=== PATIENT | male | born 1955 | race Caucasian/White ===

== ENCOUNTER 2021-12-16 13:10 | Emergency (ER) | payer OTHER ==
[2021-12-16 13:56] LABS: Absolute Lymphocytes (CBC) 1.5 K/uL (0.7-4.9); Lymphocytes % 14.1 % (15.3-44.8); MPV 6.8 fL (7.6-11.3); RBC Red Blood Cell Count 4.36 M/uL (4.33-5.43)
[2021-12-16 13:59] LABS: Protime INR 0.91
[2021-12-16 14:23] LABS: ALT/SGPT 17 U/L (12-78); AST/SGOT 18 U/L (15-37); Albumin 3.2 g/dL (3.4-5.0); Alkaline Phosphatase 77 U/L (45-117); BUN Blood Urea Nitrogen 13 mg/dL (7-18); Bicarbonate 28 mmol/L (21-32); Bilirubin Direct 0.1 mg/dL (0-0.2); Bilirubin Total 0.3 mg/dL (0.2-1.0); Glucose Level 102 mg/dL (74-106); Magnesium 2.2 mg/dL (1.8-2.4); NT PRO-BNP 56 pg/mL (<125); Potassium 4.2 mmol/L (3.5-5.1); Protein, Total 7.3 g/dL (6.4-8.2); Sodium Level 138 mmol/L (136-145)
[2021-12-16] MEDS ORDERED: METHYLPREDNISOLONE 125 MG INJ ONE (14:27)
[2021-12-16] MEDS ORDERED: LEVALBUTEROL 1.25 MG/3 ML NEB ONE (14:27)
[2021-12-16 14:38] LABS: SARS-COV-2 RT PCR POSITIVE (NEGATIVE)
--- NOTE | 2021-12-16 14:39 | RAD REPORT ---
EXAM DESCRIPTION: Daniel Single View12/16/2021 2:31 pm CLINICAL HISTORY: sob COMPARISON: none FINDINGS: Large lucency right upper lobe. 4.6 centimeter opacity medial left upper lobe. Marked COPD. Heart is normal size IMPRESSION: 4.6 centimeter opacity medial left upper lobe probably mass, less likely pneumonia. Large lucency right upper lobe probably large bulla. CT chest recommended Marked COPD
--- NOTE | 2021-12-16 16:02 | RAD REPORT ---
EXAM DESCRIPTION: CT - Chest For Pe Angio - 12/16/2021 3:36 pm CLINICAL HISTORY: sob COMPARISON: December 16, 2020 chest x-ray TECHNIQUE: Dynamically enhanced axial 3 mm thick images of the chest were obtained during administra tion of <100> mL Isovue 370 IV contrast. Coronal and oblique reconstruction images were generated and reviewed. Exam utilizes a protocol for optimal evaluation of pulmonary arterial tree. Maximum intensity projections 3D imaging was utilized All CT scans are performed using dose optimization technique as appropriate and may include automated exposure control or mA/KV adjustment according to patient size. FINDINGS: A pulmonary embolus is not seen. A thoracic aortic aneurysm is not noted. A pleural effusion is not seen. A pericardial effusion is not seen. 14 centimeter purple lower right upper lobe. Additional large bulla bilaterally. 6 centimeter left upper lobe mass extends into the left hilum. The mass encases left pulmonary artery . AP window lymphadenopathy. 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 6 centimeter left upper lobe mass likely neoplasm Marked COPD
--- NOTE | 2021-12-16 16:46 | ER ---
Nurse's Notes [facility] Name: Vladimir Bronson Age: 66 yrs Sex: Male : 1955 Arrival Date: 12/16/2021 Time: 13:11 Bed 13 Private MD: Diagnosis: SARS-associated coronavirus as the cause of diseases classified elsewhere;Left Upper Lobe Lung Mass Presentation: 12/16 13:15 Chief complaint: Patient states: he feels like he can't breath. patient states his ap3 symptoms began yesterday. Coronavirus screen: shortness of breath, Client presents with at least one sign or symptom that may indicate coronavirus-19. Standard/surgical mask placed on the client. Provider contacted for isolation considerations. Ebola Screen: No symptoms or risks identified at this time. Initial Sepsis Screen: Does the patient meet any 2 criteria? HR > 90 bpm. Yes Does the patient have a suspected source of infection? No. Patient's initial sepsis screen is negative. Risk Assessment: Do you want to hurt yourself or someone else? Patient reports no desire to harm self or others. Onset of symptoms was December 15, 2021. 13:15 Method Of Arrival: Ambulatory ap3 13:15 Acuity: KENDRICK 3 ap3 Triage Assessment: 13:18 General: Appears in no apparent distress. comfortable, Behavior is calm, cooperative, ap3 appropriate for age. Pain: Denies pain. Neuro: Level of Consciousness is awake, alert, obeys commands, Oriented to person, place, time, situation, Appropriate for age Gait is steady, Speech is normal. Cardiovascular: Patient's skin is warm and dry. Respiratory: Reports shortness of breath on exertion cough that is non-productive, Airway is patent Respiratory effort is even, unlabored, Respiratory pattern is regular, symmetrical, Onset: The symptoms/episode began/occurred yesterday, the patient has mild shortness of breath. Historical: - Allergies: 13:16 No Known Allergies; ap3 - Home Meds: 13:16 gabapentin oral [Active]; Propranolol Oral [Active]; hydrocodone-acetaminophen Oral ap3 [Active]; Lorazepam Oral [Active]; - PMHx: 13:16 Chronic pain; ap3 - Immunization history:: Client reports having NOT received the Covid vaccine. Flu vaccine is not up to date. - Social history:: Smoking status: Patient reports the use of cigarette tobacco products, smokes one-half pack cigarettes per day. Screenin:19 Abuse screen: Denies threats or abuse. Nutritional screening: No deficits noted. ap3 Tuberculosis screening: No symptoms or risk factors identified. Fall Risk No fall in past 12 months (0 pts). Assessment: 14:20 General: Appears uncomfortable, Behavior is calm, cooperative. Neuro: Level of ww Consciousness is awake, alert, obeys commands, Oriented to person, place, time, situation, Speech is normal. Cardiovascular: Rhythm is regular. Respiratory: Reports cough that is Airway is patent Respiratory effort is even, unlabored, Respiratory pattern is regular, symmetrical. GI: No signs and/or symptoms were reported involving the gastrointestinal system. : No signs and/or symptoms were reported regarding the genitourinary system. Derm: Skin is intact. Musculoskeletal: No deficits noted. No signs and/or symptoms reported regarding the musculoskeletal system. 15:28 Reassessment: Patient appears in no apparent distress at this time. No changes from ww previously documented assessment. Patient and/or family updated on plan of care and expected duration. Pain level reassessed. transferred to CT scan. 16:43 Reassessment: Patient attempted to leave ER and was redirected to his room and lit a ww cigarette in the room. ER MD, ER director, ER Charge and security notified. ER Director and ER charge discussed with patient the safety. . 18:30 Respiratory: Breath sounds are coarse. oneill Vital Signs: 13:15 BP 120 / 84; Pulse 107; Resp 19; Temp 98.6; Pulse Ox 98% on R/A; Weight 58.97 kg; ap3 Height 5 ft. 9 in. (175.26 cm); 14:30 BP 124 / 79; Pulse 89; Resp 16; Pulse Ox 100% on R/A; ww 15:28 BP 121 / 80; Pulse 88; Resp 16; Pulse Ox 99% on R/A; ww 13:15 Body Mass Index 19.20 (58.97 kg, 175.26 cm) ap3 ED Course: 13:11 Patient arrived in ED. mr 13:16 Triage completed. ap3 13:20 Arm band placed on left wrist. ap3 13:24 Fermin Salinas PA is PHCP. cp 13:24 Chin Andrade MD is Attending Physician. cp 13:24 Patient has correct armband on for positive identification. Placed in gown. Bed in low ap3 position. Call light in reach. Side rails up X 1. Pulse ox on. NIBP on. Door closed. Noise minimized. 13:27 Kiki Amado, RN is Primary Nurse. ww 14:30 XRAY Chest (1 view) In Process Unspecified. EDMS 15:37 CT Chest For PE Angio In Process Unspecified. EDMS 16:43 Sanjeev Vargas PA is Hospitalizing Provider. cp 17:46 Cameron Dickey MD is Referral Physician. cp 18:29 No provider procedures requiring assistance completed. Inserted saline lock: 20 gauge oneill in left antecubital area, using aseptic technique. IV discontinued, intact, Pressure dressing applied. Administered Medications: 14:31 Drug: Xopenex (levalbuterol) (3) 1.25 mg Route: Inhalation; ww 15:29 Follow up: Response: No adverse reaction ww 14:31 Drug: SOLU-Medrol (methylPrednisoLONE) 125 mg Route: IVP; Site: left antecubital; ww 15:29 Follow up: Response: No adverse reaction ww 17:12 Drug: Nicoderm CQ Patch 21 mg/24 hr 1 patches Route: Transdermal; Site: affected area; ww Outcome: 16:45 Decision to Hospitalize by Provider. cp 17:49 Discharge ordered by . cp 18:29 Discharged to home oneill 18:29 Condition: good 18:29 Discharge instructions given to patient, Prescriptions given X 3. 18:30 Patient left the ED. oneill Signatures: Dispatcher [employer] [facility] Portia Gallo Fermin Salinas PA PA cp Prokisch, Amanda RN RN ap3 Kiki Amado, RN AMISHA Josie Blair RN RN oneill
--- NOTE | 2021-12-16 16:46 | EDPHYS ---
Physician Documentation [facility] Name: Vladimir Bronson Age: 66 yrs Sex: Male : 1955 Arrival Date: 12/16/2021 Time: 13:11 Bed 13 Private MD: ED Physician Chin Andrade HPI: 12/16 13:45 This 66 yrs old Male presents to ER via Ambulatory with complaints of Shortness Of cp Breath, Headache. 13:45 The patient has shortness of breath at rest. cp 13:45 Onset: The symptoms/episode began/occurred yesterday, and became worse today. Duration: cp The symptoms are continuous, and are steadily getting worse. Associated signs and symptoms: Pertinent positives: non-productive cough, Pertinent negatives: chest pain, fever, hemoptysis, vomiting. Severity of symptoms: in the emergency department the symptoms are unchanged despite home interventions. Historical: - Allergies: 13:16 No Known Allergies; ap3 - Home Meds: 13:16 gabapentin oral [Active]; Propranolol Oral [Active]; hydrocodone-acetaminophen Oral ap3 [Active]; Lorazepam Oral [Active]; - PMHx: 13:16 Chronic pain; ap3 - Immunization history:: Client reports having NOT received the Covid vaccine. Flu vaccine is not up to date. - Social history:: Smoking status: Patient reports the use of cigarette tobacco products, smokes one-half pack cigarettes per day. ROS: 13:50 Constitutional: Negative for body aches, chills, fever, poor PO intake. cp 13:50 Eyes: Negative for injury, pain, redness, and discharge. cp 13:50 ENT: Negative for ear pain, sore throat, difficulty swallowing, difficulty handling secretions. 13:50 Neck: Negative for stiffness. 13:50 Cardiovascular: Negative for chest pain, edema, palpitations. 13:50 Respiratory: Positive for cough, with no reported sputum, shortness of breath, on exertion. 13:50 Abdomen/GI: Negative for abdominal pain, nausea, vomiting, and diarrhea. 13:50 : Negative for urinary symptoms. 13:50 Neuro: Negative for altered mental status, dizziness, headache, weakness. 13:50 All other systems are negative. Exam: 13:55 Constitutional: The patient appears in no acute distress, alert, awake, cp non-diaphoretic, non-toxic, well developed, well nourished. 13:55 Head/Face: Normocephalic, atraumatic. cp 13:55 Eyes: Periorbital structures: appear normal, Conjunctiva: normal, no exudate, no injection, Sclera: no appreciated abnormality, Lids and lashes: appear normal, bilaterally. 13:55 ENT: External ear(s): are unremarkable, Nose: is normal, Mouth: Lips: moist, Oral mucosa: moist, Posterior pharynx: Airway: no evidence of obstruction, patent. 13:55 Neck: ROM/movement: is normal, is supple, without pain, no range of motions limitations. 13:55 Chest/axilla: Inspection: normal. 13:55 Cardiovascular: Rate: tachycardic, Rhythm: regular, Edema: is not appreciated, JVD: is not appreciated. 13:55 Respiratory: the patient does not display signs of respiratory distress, Respirations: shallow respirations, that is mild, Breath sounds: bronchial sounds, that are mild, are heard diffusely, decreased breath sounds, that are moderate, throughout, stridor, is not appreciated. 13:55 Abdomen/GI: Inspection: abdomen appears normal, Palpation: abdomen is soft and non-tender, in all quadrants. 13:55 Back: pain, is absent, ROM is normal. 13:55 Neuro: Orientation: to person, place \\T\\ time. Mentation: is normal, Motor: moves all fours, strength is normal, Sensation: is normal. Vital Signs: 13:15 BP 120 / 84; Pulse 107; Resp 19; Temp 98.6; Pulse Ox 98% on R/A; Weight 58.97 kg; ap3 Height 5 ft. 9 in. (175.26 cm); 14:30 BP 124 / 79; Pulse 89; Resp 16; Pulse Ox 100% on R/A; ww 15:28 BP 121 / 80; Pulse 88; Resp 16; Pulse Ox 99% on R/A; ww 13:15 Body Mass Index 19.20 (58.97 kg, 175.26 cm) ap3 MDM: 13:39 Patient medically screened. cp 14:00 Differential diagnosis: CHF exacerbation, Chronic Obstructive Pulmonary Disease cp Myocardial Infarction pneumonia, Pneumothorax pulmonary edema, Pulmonary Embolism Sepsis Unstable Angina. 16:20 Data reviewed: vital signs, nurses notes, lab test result(s), EKG, radiologic studies, cp CT scan, plain films. 16:30 Counseling: I had a detailed discussion with the patient and/or guardian regarding: the cp historical points, exam findings, and any diagnostic results supporting the discharge/admit diagnosis, lab results, radiology results, the need for further work-up and treatment in the hospital. Physician consultation: Sanjeev GRANGER was called at 16:30, was contacted at 16:30, regarding admission, to the telemetry unit. 17:44 Physician consultation: Sanjeev GRANGER in the emergency department to see patient at cp 17:44, recommends discharge to home for continued monitoring and f/u with DR Dickey. Patient to start Decadron 2 mg bid . 12/16 13:24 Order name: COVID-19/FLU A+B (Document "Date of Onset" if Symptomatic); Complete Time: ap3 14:39 12/16 14:39 Interpretation: Reviewed. 12/16 13:40 Order name: Basic Metabolic Panel; Complete Time: 14:39 cp 12/16 13:40 Order name: CBC with Diff; Complete Time: 14:39 cp 12/16 14:39 Interpretation: Normal except: MPV 6.8; REENA% 73.9; LYM% 14.1; EOSINOPHIL % 4.7. cp 02 13:40 Order name: LFT's; Complete Time: 14:39 cp 12/16 14:39 Interpretation: Normal except: ALB 3.2; GLOB 4.1; A/G 0.8. cp 12/16 13:40 Order name: Magnesium; Complete Time: 14:39 cp 12/16 13:40 Order name: NT PRO-BNP; Complete Time: 14:39 cp 12/16 13:40 Order name: PT-INR; Complete Time: 14:39 cp 12/16 13:40 Order name: Troponin HS; Complete Time: 14:39 cp 12/16 13:40 Order name: XRAY Chest (1 view); Complete Time: 16:04 cp 12/16 14:42 Order name: CT Chest For PE Angio; Complete Time: 16:04 cp 12/16 13:40 Order name: Cardiac monitoring; Complete Time: 13:44 cp 12/16 13:40 Order name: EKG - Nurse/Tech; Complete Time: 14:14 cp 12/16 13:40 Order name: IV Saline Lock; Complete Time: 14:14 cp 12/16 13:40 Order name: Labs collected and sent; Complete Time: 14:14 cp 12/16 13:40 Order name: O2 Per Protocol; Complete Time: 13:44 cp 12/16 13:40 Order name: O2 Sat Monitoring; Complete Time: 13:44 cp Administered Medications: 14:31 Drug: Xopenex (levalbuterol) (3) 1.25 mg Route: Inhalation; ww 15:29 Follow up: Response: No adverse reaction ww 14:31 Drug: SOLU-Medrol (methylPrednisoLONE) 125 mg Route: IVP; Site: left antecubital; ww 15:29 Follow up: Response: No adverse reaction ww 17:12 Drug: Nicoderm CQ Patch 21 mg/24 hr 1 patches Route: Transdermal; Site: affected area; ww Disposition Summary: 12/16/21 17:49 Discharge Ordered Location: Home(12/16/21 17:49) cp Problem: new(12/16/21 17:49) cp Symptoms: have improved(12/16/21 17:49) cp Condition: Stable(12/16/21 17:49) cp Diagnosis - SARS-associated coronavirus as the cause of diseases classified elsewhere(12/16/21 cp 17:49) - Left Upper Lobe Lung Mass cp Followup: cp - With: Cameron Dickey MD - When: next week - Reason: Recheck today's complaints Discharge Instructions: - Discharge Summary Sheet cp - Aspirin and Your Heart cp - COVID-19 cp - Things to Know about the COVID-19 Pandemic - [facility] cp - 10 Things You Can Do to Manage Your COVID-19 Symptoms at Home - [facility] cp - Lung Mass cp - COVID-19: Quarantine vs. Isolation - [facility] cp - Prevent the Spread of COVID-19 if You Are Sick - [facility] cp Forms: - Medication Reconciliation Form cp - Thank You Letter cp - Antibiotic Education cp - Prescription Opioid Use cp Prescriptions: - albuterol sulfate 90 mcg/actuation Inhalation HFA aerosol inhaler - inhale 1 puff by INHALATION route every 4-6 hours; 1 Inhaler; Refills: 0, cp Product Selection Permitted - dexamethasone 2 mg Oral tablet - take 1 tablet by ORAL route 2 times per day for 5 days; 10 tablet; Refills: 0, cp Product Selection Permitted - Zithromax Z-Jose 250 mg Oral Tablet - take 1 tablet by ORAL route as directed for 5 days Day 1 - take two (2) tablets cp one time. Day 2, 3, 4 , 5 take one (1) tablet once daily.; 6 tablet; Refills: 0, Product Selection Permitted Addendum: 12/19/2021 07:02 Co-signature as Attending Physician, Chin Andrade MD. r n 07:02 I agree with the assessment and plan of care. Attestation: The patient's history, exam r n findings, diagnostics, and a summary of any interventions or procedures was reviewed in detail with Fermin GRANGER. Signatures: Dispatcher [employer] EDMS Chin Andrade MD MD rn Page, Corey, PA PA cp Mel Claire RN RN ap3 Kiki Amado RN RN ww Corrections: (The following items were deleted from the chart) 12/16 17:46 16:45 Inpatient Admission cp cp 17:46 16:45 Sanjeev Vargas cp cp 17:46 16:45 Telemetry/MedSurg (Inpatient) cp cp 17:46 16:45 Stable cp cp 17:46 16:45 new cp cp 17:46 16:45 have improved cp cp 17:46 16:45 Standard cp cp 17:46 16:45 cp cp 17:46 16:45 Hypoxemia cp cp 17:46 16:45 SARS-associated coronavirus as the cause of diseases classified elsewhere cp cp 17:46 16:45 COPD/ Chronic obstructive pulmonary disease with (acute) exacerbation cp cp 17:46 16:46 Left Upper Lobe Lung Mass cp cp
[2021-12-16] MEDS ORDERED: NICOTINE 21 MG/PAT TD ONE (17:10)
[2021-12-16 19:18] VITALS: TEMP 98.6
[2021-12-16 19:21] VITALS: BP 121/80; O2SAT 99
== END 2021-12-16 18:30 | disposition home or self-care (01) ==
LOC: ER 13:10
DX: U07.1 COVID-19 (principal); R91.8 Other nonspecific abnormal finding of lung field; F17.210 Nicotine dependence, cigarettes, uncomplicated
CPT/HCPCS: 85025; 80048; 36415; 83735; 85610; 80076; 84484; 83880; 0240U; 71275; 71045; 96374; 99284; Q9967; J2930

== ENCOUNTER 2022-06-15 04:24 | Emergency (ER) | payer OTHER ==
[2022-06-15] MEDS ORDERED: MORPHINE 4 MG/ML SYR ONE (05:35)
[2022-06-15] MEDS ORDERED: ONDANSETRON 4 MG/2 ML VIAL ONE (05:35)
[2022-06-15] MEDS ORDERED: HYDROMORPHONE HCL 0.5 MG/0.5 ML INJ ONE (06:49)
[2022-06-15 07:19] LABS: Absolute Lymphocytes (CBC) 0.9 K/uL (0.7-4.9); Hematocrit 36.2 % (39.6-49.0); Lymphocytes % 10.5 % (15.3-44.8); MCV 100.5 fL (80-100)
[2022-06-15 07:30] LABS: Protime INR 1.02
[2022-06-15 07:38] LABS: Albumin 3.2 g/dL (3.4-5.0); Bilirubin Direct 0.1 mg/dL (0-0.2); Bilirubin Total 0.4 mg/dL (0.2-1.0); Magnesium 2.5 mg/dL (1.8-2.4); Potassium 4.3 mmol/L (3.5-5.1); Protein, Total 6.9 g/dL (6.4-8.2); Troponin High Sensitivity 5.5 pg/mL (<58.9)
--- NOTE | 2022-06-15 08:25 | RAD REPORT ---
EXAM DESCRIPTION: RAD - Chest Single View - 06/15/2022 5:06 am CLINICAL HISTORY: CHEST PAIN Chest pain. COMPARISON: Chest Single View dated 12/16/2021 FINDINGS: Portable technique limits examination quality. Advanced COPD is present with large bullae in the right upper lung. Right port catheter has its tip i n the SVC. Small area of nodularity is present in the right mid lung laterally, not evident on the pr ior study. Left suprahilar lung opacity appears less prominent than on the prior study. The heart is normal in size.
--- NOTE | 2022-06-15 08:41 | RAD REPORT ---
EXAM DESCRIPTION: CT - Chest For Pe Angio - 06/15/2022 8:15 am CLINICAL HISTORY: Chest pain. chest pain, h/o lung cancer COMPARISON: Chest For Pe Angio dated 12/16/2021 TECHNIQUE: CT angiogram of the pulmonary arteries was performed with MIP. All CT scans are performed using dose optimization technique as appropriate and may include automated exposure control or mA/KV adjustment according to patient size. FINDINGS: No evidence of pulmonary thromboembolism. No acute aortic finding demonstrated. There is quite advanced emphysematous changes with large bullae in both upper lungs. Irregular mass i n the posterior left upper lobe has diminished in size moderately. Previously on 12/16/2021 the mass measured 5.8 x 4.7 cm, currently measuring 3.8 x 2.7 cm. There has been a similar reduction in the si ze of the left AP window and left hilar lymphadenopathy. Mild atelectasis is seen in the right lung base. No significant pericardial or pleural fluid. No lytic or blastic bone lesion. IMPRESSION: No evidence of pulmonary thromboembolism. Advanced emphysema with large bullae in both upper lobes. Moderate reduction in the size of the left lung malignancy since December 2021.
--- NOTE | 2022-06-15 09:17 | EDPHYS ---
Physician Documentation [facility] Name: Vladimir Bronson Age: 67 yrs Sex: Male : 1955 Arrival Date: 06/15/2022 Time: 04:28 Bed 14 Private MD: ED Physician Liborio Maher HPI: 06/15 04:59 This 67 yrs old Male presents to ER via Ambulatory with complaints of Chest Pain. [facility] 04:59 The patient or guardian reports chest pain that is located primarily in the anterior mh7 chest wall, left. Onset: 3 month(s) ago, and became worse 4 day(s) ago. The pain does not radiate. Associated signs and symptoms: Pertinent negatives: abdominal pain, cough, diaphoresis, dizziness, headache, lower extremity pain, lower extremity swelling, lightheadedness, nausea, near syncope, palpitations, recent travel, shortness of breath, syncope, vomiting. The chest pain is described as aching, dull. Duration: The patient or guardian reports multiple episodes, that are intermittent, that wax and wane, with no pattern. Modifying factors: The symptoms are alleviated by narcotic pain medication, Hydrocodone. the symptoms are aggravated by nothing. Severity of pain: At its worst the pain was moderate 3 day(s) ago, in the emergency department the pain has improved mildly. States that pain started after he ran out of his Hydrocodone. he has had the pain for months due to his lung cancer. He has ad chemotherapy and radiation.. Historical: - Allergies: 04:49 No Known Allergies; bb - Home Meds: 06:27 gabapentin Oral [Active]; Hydrocodone-Acetaminophen Oral [Active]; Lorazepam Oral kd3 [Active]; Propranolol Oral [Active]; - PMHx: 06:27 Chronic pain; kd3 - Immunization history:: Client reports having NOT received the Covid vaccine. Pfizer x 4. - Social history:: Smoking status: Patient/guardian denies using tobacco, Stopped _ months ago 1. ROS: 04:59 Constitutional: Negative for fever, chills, and weight loss, Eyes: Negative for injury, mh7 pain, redness, and discharge, ENT: Negative for injury, pain, and discharge, Neck: Negative for injury, pain, and swelling, Respiratory: Negative for shortness of breath, cough, wheezing, and pleuritic chest pain, Abdomen/GI: Negative for abdominal pain, nausea, vomiting, diarrhea, and constipation, Back: Negative for injury and pain, : Negative for injury, bleeding, discharge, and swelling, MS/Extremity: Negative for injury and deformity, Skin: Negative for injury, rash, and discoloration, Neuro: Negative for headache, weakness, numbness, tingling, and seizure, Psych: Negative for depression, anxiety, suicide ideation, homicidal ideation, and hallucinations, Allergy/Immunology: Negative for hives, rash, and allergies, Endocrine: Negative for neck swelling, polydipsia, polyuria, polyphagia, and marked weight changes, Hematologic/Lymphatic: Negative for swollen nodes, abnormal bleeding, and unusual bruising. Exam: 04:41 Reviewed at 0700 ms3 04:59 Head/Face: Normocephalic, atraumatic. Eyes: Pupils equal round and reactive to light, mh7 extra-ocular motions intact. Lids and lashes normal. Conjunctiva and sclera are non-icteric and not injected. Cornea within normal limits. Periorbital areas with no swelling, redness, or edema. Neck: Trachea midline, no thyromegaly or masses palpated, and no cervical lymphadenopathy. Supple, full range of motion without nuchal rigidity, or vertebral point tenderness. No Meningismus. Chest/axilla: Normal chest wall appearance and motion. Nontender with no deformity. No lesions are appreciated. Cardiovascular: Regular rate and rhythm with a normal S1 and S2. No gallops, murmurs, or rubs. Normal PMI, no JVD. No pulse deficits. Respiratory: Lungs have equal breath sounds bilaterally, clear to auscultation and percussion. No rales, rhonchi or wheezes noted. No increased work of breathing, no retractions or nasal flaring. Abdomen/GI: Soft, non-tender, with normal bowel sounds. No distension or tympany. No guarding or rebound. No evidence of tenderness throughout. Back: No spinal tenderness. No costovertebral tenderness. Full range of motion. Skin: Warm, dry with normal turgor. Normal color with no rashes, no lesions, and no evidence of cellulitis. MS/ Extremity: Pulses equal, no cyanosis. Neurovascular intact. Full, normal range of motion. Neuro: Awake and alert, GCS 15, oriented to person, place, time, and situation. Cranial nerves II-XII grossly intact. Motor strength 5/5 in all extremities. Sensory grossly intact. Cerebellar exam normal. Normal gait. Psych: Awake, alert, with orientation to person, place and time. Behavior, mood, and affect are within normal limits. 04:59 Constitutional: The patient appears in no acute distress, alert, awake, uncomfortable. Vital Signs: 04:46 BP 133 / 100; Pulse 87; Resp 16 S; Temp 98.4(O); Pulse Ox 97% on R/A; Weight 54.43 kg bb (R); Height 5 ft. 9 in. (175.26 cm) (R); Pain 10/10; 06:26 BP 133 / 90; Pulse 79; Resp 19; Pulse Ox 95% on R/A; kd3 07:30 BP 115 / 87; Pulse 84; Resp 13 S; Pulse Ox 93% on R/A; Pain 6/10; jg9 08:15 BP 148 / 91; Pulse 76; Resp 22 S; Pulse Ox 97% ; jg9 09:15 BP 141 / 90; Pulse 75; Resp 22 S; Pulse Ox 98% on R/A; jg9 04:46 Body Mass Index 17.72 (54.43 kg, 175.26 cm) bb MDM: 07:00 Transition of care: Care assumed from Jay Haro MD. ms3 07:21 Patient medically screened. ms3 09:16 Differential diagnosis: abnormal EKG, acute myocardial infarction, pneumonia, pulmonary ms3 embolus, unstable angina. HEART Score: History: Slightly Suspicious (0), ECG: Normal (0), Age: > or = 65 years (2), Risk Factors: No Risk Factors Known (0), Troponin: < or = 1 x Normal Limit (0), Total Score = 2. Data reviewed: vital signs, nurses notes, lab test result(s), EKG, radiologic studies, and as a result, I will discharge patient. Counseling: I had a detailed discussion with the patient and/or guardian regarding: the historical points, exam findings, and any diagnostic results supporting the discharge/admit diagnosis, lab results, radiology results, the need for outpatient follow up, to return to the emergency department if symptoms worsen or persist or if there are any questions or concerns that arise at home. ED course: Discussed labs, EKG, CXR, CT PE, physical exam findings with patient. Patient to follow-up with his PMD in 2 to 3 days. Patient understands and agrees with plan. All questions were answered. Return precautions discussed include worsening symptoms, or any other concerns. On reevaluation patient symptoms improved, patient is alert and oriented x4, no apparent distress, nontoxic, ambulatory in emergency department, tolerating p.o. . 06/15 04:47 Order name: Basic Metabolic Panel; Complete Time: 07:55 7 06/15 04:47 Order name: CBC with Diff; Complete Time: 07:55 7 06/15 04:47 Order name: LFT's; Complete Time: 07:55 7 06/15 04:47 Order name: Magnesium; Complete Time: 07:55 7 06/15 04:47 Order name: NT PRO-BNP; Complete Time: 07:55 7 06/15 04:47 Order name: PT-INR; Complete Time: 07:55 7 06/15 04:47 Order name: Troponin HS; Complete Time: 07:55 7 06/15 04:47 Order name: XRAY Chest (1 view); Complete Time: 08:35 7 06/15 05:06 Order name: COVID-19 SARS RT PCR (Document "Date of Onset" if Symptomatic); Complete 7 Time: 08:06/15 06:54 Order name: CT Chest For PE Angio 06/15 06:58 Order name: Chest For Pe Angio; Complete Time: 09:09 EDWY 06/15 04:47 Order name: EKG; Complete Time: 04:48 7 06/15 04:47 Order name: Cardiac monitoring; Complete Time: 05:20 7 06/15 04:47 Order name: EKG - Nurse/Tech; Complete Time: 05:20 7 06/15 04:47 Order name: IV Saline Lock; Complete Time: 05:20 7 06/15 04:47 Order name: Labs collected and sent; Complete Time: 05:20 7 06/15 04:47 Order name: O2 Per Protocol; Complete Time: 05:20 7 06/15 04:47 Order name: O2 Sat Monitoring; Complete Time: 05:20 mh7 EC:41 Rate is 83 beats/min. Rhythm is regular. QRS [place] is Normal. ME interval is normal. QRS ms3 interval is normal. Clinical impression: Normal ECG. Interpreted by me. Reviewed by me. Administered Medications: 05:36 Drug: Zofran (Ondansetron) 4 mg Route: IVP; Site: right antecubital; kd3 05:37 Follow up: Response: No adverse reaction kd3 05:37 Drug: morphine 4 mg Route: IVP; Infused Over: 4 mins; Site: right antecubital; kd3 05:37 Follow up: Response: No adverse reaction kd3 06:35 Drug: Dilaudid (HYDROmorphone) 1 mg Route: IVP; Site: right antecubital; kd3 07:30 Follow up: Response: No adverse reaction; Pain is decreased; RASS: Alert and Calm (0) jg9 Disposition Summary: 06/15/22 09:16 Discharge Ordered Location: Home ms3 Condition: Stable ms3 Diagnosis - Chest pain, unspecified ms3 - Emphysema, unspecified ms3 - Shortness of breath ms3 Followup: ms3 - With: Private Physician - When: 2 - 3 days - Reason: Recheck today's complaints Discharge Instructions: - Discharge Summary Sheet ms3 - Nonspecific Chest Pain, Adult ms3 Forms: - Medication Reconciliation Form ms3 - Thank You Letter ms3 - Antibiotic Education ms3 - Prescription Opioid Use ms3 Signatures: Dispatcher [employer] Rowena Dodd RN RN bb Sims, Marcus, DO DO ms3 Jay Haro MD MD mh7 Velvet Frey RN RN kd3 Dustin Hernandez9 Sophia Reyna RN jg9
--- NOTE | 2022-06-15 09:17 | ER ---
Nurse's Notes [facility] Name: Vladimir Bronson Age: 67 yrs Sex: Male : 1955 Arrival Date: 06/15/2022 Time: 04:28 Bed 14 Private MD: Diagnosis: Chest pain, unspecified;Emphysema, unspecified;Shortness of breath Presentation: 06/15 04:46 Chief complaint: Patient states: he is having chest pain for a while but worse over the bb last 2 days he is out of his pain medication and he is not able to sleep pt has hx of lung cancer and says he has finished his treatment. Coronavirus screen: At this time, the client does not indicate any symptoms associated with coronavirus-19. Ebola Screen: No symptoms or risks identified at this time. Initial Sepsis Screen: Does the patient meet any 2 criteria? No. Patient's initial sepsis screen is negative. Does the patient have a suspected source of infection? No. Patient's initial sepsis screen is negative. Risk Assessment: Do you want to hurt yourself or someone else? Patient reports no desire to harm self or others. Onset of symptoms was May 2022. 04:46 Method Of Arrival: Ambulatory bb 04:46 Acuity: KENDRICK 3 bb Triage Assessment: 06:26 General: Appears in no apparent distress. Behavior is calm, cooperative. Pain: kd3 Complains of pain in chest. Cardiovascular: Patient's skin is warm and dry. Historical: - Allergies: 04:49 No Known Allergies; bb - Home Meds: 06:27 gabapentin Oral [Active]; Hydrocodone-Acetaminophen Oral [Active]; Lorazepam Oral kd3 [Active]; Propranolol Oral [Active]; - PMHx: 06:27 Chronic pain; kd3 - Immunization history:: Client reports having NOT received the Covid vaccine. Pfizer x 4. - Social history:: Smoking status: Patient/guardian denies using tobacco, Stopped _ months ago 1. Screenin:26 Abuse screen: Denies threats or abuse. Denies injuries from another. Nutritional kd3 screening: No deficits noted. Tuberculosis screening: No symptoms or risk factors identified. Fall Risk IV access (20 points). Assessment: 06:27 Pain: Pain does not radiate. Pain began gradually. kd3 06:27 General: Appears in no apparent distress. Behavior is calm, cooperative. Neuro: Level kd3 of Consciousness is awake, alert, obeys commands, Oriented to person, place, time, situation. Respiratory: Airway is patent Trachea midline Respiratory effort is even, unlabored, Respiratory pattern is regular, symmetrical. 07:30 Reassessment: Patient and/or family updated on plan of care and expected duration. Pain jg9 level reassessed. Patient is alert, oriented x 3, equal unlabored respirations, skin warm/dry/pink. Patient reports pain 7/10 is improved from initial pain level. Patient resting in bed on the phone in NAD. Patient requesting water to drink. 08:30 Reassessment: No changes from previously documented assessment. Patient and/or family jg9 updated on plan of care and expected duration. Pain level reassessed. Patient is alert, oriented x 3, equal unlabored respirations, skin warm/dry/pink. 09:30 Reassessment: No changes from previously documented assessment. Patient and/or family jg9 updated on plan of care and expected duration. Pain level reassessed. Patient is alert, oriented x 3, equal unlabored respirations, skin warm/dry/pink. Vital Signs: 04:46 BP 133 / 100; Pulse 87; Resp 16 S; Temp 98.4(O); Pulse Ox 97% on R/A; Weight 54.43 kg bb (R); Height 5 ft. 9 in. (175.26 cm) (R); Pain 10/10; 06:26 BP 133 / 90; Pulse 79; Resp 19; Pulse Ox 95% on R/A; kd3 07:30 BP 115 / 87; Pulse 84; Resp 13 S; Pulse Ox 93% on R/A; Pain 6/10; jg9 08:15 BP 148 / 91; Pulse 76; Resp 22 S; Pulse Ox 97% ; jg9 09:15 BP 141 / 90; Pulse 75; Resp 22 S; Pulse Ox 98% on R/A; jg9 04:46 Body Mass Index 17.72 (54.43 kg, 175.26 cm) bb ED Course: 04:28 Patient arrived in ED. ja2 04:46 Jay Haro MD is Attending Physician. mh7 04:47 Velvet Frey, AMISHA is Primary Nurse. kd3 04:49 Triage completed. bb 04:49 Arm band placed on Patient placed in an exam room, on a stretcher, on child monitor, bb on pulse oximetry. EKG completed in triage. Results shown to MD. 05:08 XRAY Chest (1 view) In Process Unspecified. EDMS 05:19 Initial lab(s) drawn, by me, sent to lab. EKG done, by ED staff, reviewed by Jay Haro MD. Inserted saline lock: 20 gauge in right antecubital area, using aseptic technique. Blood collected. 05:20 Basic Metabolic Panel Sent. 5 05:20 CBC with Diff Sent. 5 05:20 LFT's Sent. [facility] 05:20 Magnesium Sent. [facility] 05:20 NT PRO-BNP Sent. [facility] 05:20 PT-INR Sent. [facility] 05:20 Troponin HS Sent. 5 05:24 Patient has correct armband on for positive identification. Bed in low position. Call [facility] light in reach. Side rails up X 1. Warm blanket given. night monitor on. Pulse ox on. NIBP on. 05:36 COVID-19 SARS RT PCR (Document "Date of Onset" if Symptomatic) Sent. kd3 06:27 No provider procedures requiring assistance completed. Patient maintains SpO2 kd3 saturation greater than 95% on room air. 07:11 Attending Physician role handed off by Jay Haro MD ms3 07:11 Liborio Maher DO is Attending Physician. ms3 08:17 Chest For Pe Angio In Process Unspecified. EDMS 09:30 ED physician to see patient. jg9 09:41 IV discontinued. jg9 09:42 CT Chest For PE Angio Sent. jg9 Administered Medications: 05:36 Drug: Zofran (Ondansetron) 4 mg Route: IVP; Site: right antecubital; kd3 05:37 Follow up: Response: No adverse reaction kd3 05:37 Drug: morphine 4 mg Route: IVP; Infused Over: 4 mins; Site: right antecubital; kd3 05:37 Follow up: Response: No adverse reaction kd3 06:35 Drug: Dilaudid (HYDROmorphone) 1 mg Route: IVP; Site: right antecubital; kd3 07:30 Follow up: Response: No adverse reaction; Pain is decreased; RASS: Alert and Calm (0) jg9 Medication: 06:27 VIS not applicable for this client. kd3 Outcome: 09:16 Discharge ordered by . ms3 09:41 Discharged to home ambulatory. jg9 09:41 Condition: stable 09:41 Discharge instructions given to patient, Instructed on discharge instructions, follow up and referral plans. Demonstrated understanding of instructions, follow-up care. 09:42 Patient left the ED. jg9 Signatures: Dispatcher [employer] EDMS Rowena Bonner, RN RN Kerri Woodard 5 Liborio Maher DO DO ms3 Jay Haro MD MD mh7 Gia Parker Kyli, RN RN kd3 Sophia Reyna RN RN jg9
[2022-06-15 10:07] VITALS: TEMP 98.4
[2022-06-15 10:34] VITALS: BP 141/90; O2SAT 98
--- NOTE | 2022-06-16 08:16 | EKG ---
Test Date: 2022-06-15 Test Time: 04:41:14 Plasma Table Operator: KATHY MEASUREMENT RESULTS: Intervals: Rate: 83 KS: 142 QRSD: 86 QT: 356 QTc: 418 [place]: P: 84 KS: 142 QRS: 80 T: 85 INTERPRETIVE STATEMENTS: Normal sinus rhythm Normal ECG No previous ECG available for comparison Electronically Signed On 06-16-22 08:11:30 CDT by Aniceto Becker
== END 2022-06-15 09:42 | disposition home or self-care (01) ==
LOC: ER 04:24
DX: R07.89 Other chest pain (principal); J43.9 Emphysema, unspecified; R06.02 Shortness of breath; Z85.118 Personal history of other malignant neoplasm of bronchus and lung; Z87.891 Personal history of nicotine dependence; Z20.822 Contact with and (suspected) exposure to COVID-19
CPT/HCPCS: 85025; 80048; 36415; 83735; 85610; 80076; 84484; 83880; 71275; 71045; U0003; Q9967; J1170; J2405; 93005; 96374; 96375; 99285